=== PATIENT | female | born 1985 | race Asian ===

== ENCOUNTER 2021-02-01 10:41 | Emergency (ER) | payer OTHER ==
--- NOTE | 2021-02-01 11:02 | EDM.PDOC ---
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 Patient states she was recently put on progesterone 200 mg twice daily. Roughly an hour after taking her medications while at work patient had sudden onset of blurry vision accompanied with dizziness and some presyncope. Patient sat down and notes that symptoms now are much better although she still feels little dizzy. No longer with blurred vision. No one-sided muscle weakness. No associated headache. No vaginal bleeding or abdominal pain. - Related Data Allergies Allergy/AdvReac Type Severity Reaction Status Date / Time No Known Allergies Allergy Verified 02/01/21 11:09 Home Meds: Home Meds Progesterone, Micronized [Progesterone] 200 mg PO BID 02/01/21 [History] ED ROS GENERAL - Review of Systems Review Of Systems: Comprehensive ROS is negative, except as noted in HPI. ED EXAM, GENERAL - Physical Exam Exam: See Below Exam Limited By: No Limitations General Appearance: Alert, WD/WN, No Apparent Distress Eye Exam: Bilateral Eye: PERRL Ears: Hearing Grossly Normal Throat/Mouth: Normal Voice, No Airway Compromise Head: Atraumatic, Normocephalic Neck: Normal Inspection Respiratory/Chest: No Respiratory Distress, Lungs Clear, Normal Breath Sounds, No Accessory Muscle Use Cardiovascular: Normal Peripheral Pulses, Regular Rate, Rhythm GI/Abdominal: Soft, Non-Tender Extremities: Normal Inspection Neurological: Alert, Oriented, CN II-XII Intact, Normal Cognition, Normal Gait, No Motor/Sensory Deficits Psychiatric: Normal Affect, Normal Mood Skin Exam: Warm, Dry, Intact, Normal Color Course - Re-Assessments/Exams Free Text/Narrative Re-Assessment/Exam: 02/01/21 11:19 I spoke with patient's OBGYN Dr. Pratt who recommends patient contact her office to see about switching to a lower dose of progesterone or vaginal progesterone. Patient is agreeable with this plan. 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 She told me to tell you to call her office today so that they can adjust medications. The following information is given to patients seen in the emergency department who are being discharged to home. This information is to outline your options for follow-up care. We provide all patients seen in our emergency department with a follow-up referral. The need for follow-up, as well as the timing and circumstances, are variable depending upon the specifics of your emergency department visit. If you don't have a primary care physician on staff, we will provide you with a referral. We always advise you to contact your personal physician following an emergency department visit to inform them of the circumstance of the visit and for follow-up with them and/or the need for any referrals to a consulting specialist. The emergency department will also refer you to a specialist when appropriate. This referral assures that you have the opportunity for follow-up care with a specialist. All of these measure are taken in an effort to provide you with optimal care, which includes your follow-up. Under all circumstances we always encourage you to contact your private physician who remains a resource for coordinating your care. When calling for follow-up care, please make the office aware that this follow-up is from your recent emergency room visit. If for any reason you are refused follow-up, please contact the [facility] at and asked to speak to the emergency department charge nurse. Please follow up with your primary care physician. If you do not have a primary care physician, see below: [facility] [address] [place] [id number] [facility] [address] [place], [place] [id number] [facility] [address] [place] [id number]
== END 2021-02-01 11:48 | disposition home or self-care (01) ==
LOC: MW.ED 10:41
DX: R42 Dizziness and giddiness (principal); R53.1 Weakness; H53.8 Other visual disturbances
CPT/HCPCS: 99284

== ENCOUNTER 2021-09-09 05:48 | Inpatient (IN) | payer OTHER ==
[2021-09-09] MEDS ORDERED: Sodium Chloride 0.9% 2.5 ML Syringe FLUSH PRN (05:55)
[2021-09-09] MEDS ORDERED: Sodium Chloride 0.9% 20 ML SDV IV PRN (05:55)
[2021-09-09] MEDS ORDERED: Sodium Chloride 0.9% 10 ML Syringe FLUSH PRN (05:55)
[2021-09-09] MEDS ORDERED: Citric Acid/Sodium Citrate Solution 30 ML Cup PO ONE (05:55)
[2021-09-09] MEDS ORDERED: Oxytocin/0.9 % Sodium Chloride 30 UNIT/500 ML BAG IV SCH (06:00)
[2021-09-09] MEDS ORDERED: Lactated Ringers 1,000 ML IV SCH ×2 (06:00→09:00)
[2021-09-09] MEDS ORDERED: Ondansetron 4 MG/2 ML SDV ONE (07:12)
[2021-09-09] MEDS ORDERED: Ropivacaine 0.5% 5 MG/ML 30 ML SDV ONE ×2 (07:13)
[2021-09-09] MEDS ORDERED: Morphine PF 10 MG/10 ML SDV ONE (07:13)
[2021-09-09] MEDS ORDERED: Lidocaine 2% 100 MG/5 ML Syringe ONE (07:13)
[2021-09-09] MEDS ORDERED: Phenylephrine 1% 10 MG/ML SDV ONE (07:13)
[2021-09-09] MEDS ORDERED: fentaNYL 100 MCG/2 ML SDV ONE (07:13)
[2021-09-09] MEDS ORDERED: ceFAZolin 1 GM Vial ONE ×2 (07:14)
[2021-09-09] MEDS ORDERED: Dexamethasone 4 MG/ML 5 ML MDV ONE (07:14)
[2021-09-09] MEDS ORDERED: Lidocaine 2% 5 ML SDV ONE (08:02)
[2021-09-09] MEDS ORDERED: Ondansetron 4 MG/2 ML SDV IVPUSH PRN (09:00)
[2021-09-09] MEDS ORDERED: Lanolin 100% Cream 7 GM Tube TOP PRN (09:00)
[2021-09-09] MEDS ORDERED: Bisacodyl 10 MG Supp RECTAL PRN (09:00)
[2021-09-09] MEDS ORDERED: diphenhydrAMINE 50 MG/ML SDV IVPUSH PRN (09:00)
[2021-09-09] MEDS ORDERED: Acetaminophen/oxyCODONE 325-5 MG Tab PO PRN ×2 (09:00)
[2021-09-09] MEDS: Docusate Sodium 100 MG Cap PO SCH ×2 (13:31→23:00)
[2021-09-10] MEDS: Docusate Sodium 100 MG Cap PO SCH ×2 (10:35→20:55)
[2021-09-10] MEDS: Acetaminophen 500 MG Tab PO PRN ×2 (15:28→23:04)
[2021-09-11] MEDS: Docusate Sodium 100 MG Cap PO SCH (08:00)
[2021-09-11] MEDS: Acetaminophen 500 MG Tab PO PRN (08:00)
== END 2021-09-11 12:00 | disposition home or self-care (01) | DRG 788 ==
LOC: MW.OBCHECK 05:48 → MW.OB 05:49 → MW.OBCHECK 05:55 → MW.OB 05:55
PROVIDERS: ADMIT Obstetrics & Gynecology; ATTEND Obstetrics & Gynecology
PROC: 10D00Z1 Extraction of Products of Conception, Low, Open Approach (ICD-10-PCS; principal; 2021-09-09)
DX: O34.211 Maternal care for low transverse scar from previous cesarean delivery (principal); Z37.0 Single live birth; O24.420 Gestational diabetes mellitus in childbirth, diet controlled; Z20.822 Contact with and (suspected) exposure to COVID-19; Z3A.39 39 weeks gestation of pregnancy
CPT/HCPCS: 01961; 36415; 59025; 64488; 82947; 85014; 85018; 85027; 86592; 86850; 86900; 86901; A9270-GY; J0131; J0690; J1100; J1790; J2274; J2370; J2405; J2795; J3010; J7120; U0002